=== PATIENT | female | born 1990 | race Hispanic/Latino ===

== ENCOUNTER 2022-02-23 08:55 | Inpatient (IN) | payer OTHER, SELFPAY | END 2022-02-23 10:35 | disposition home or self-care (01) | DRG 833 | LOC: CSHLD 08:55 | PROVIDERS: ADMIT Student in an Organized Health Care Education/Training Program; ATTEND Student in an Organized Health Care Education/Training Program | DX: O36.4XX0 Maternal care for intrauterine death, not applicable or unspecified (principal); O99.213 Obesity complicating pregnancy, third trimester; E66.9 Obesity, unspecified; O24.419 Gestational diabetes mellitus in pregnancy, unspecified control; Z3A.38 38 weeks gestation of pregnancy; Z86.16 Personal history of COVID-19 | CPT/HCPCS: 76815 ==

== ENCOUNTER 2022-02-23 18:00 | Inpatient (IN) | payer OTHER, SELFPAY ==
[2022-02-23] MEDS ORDERED: Ibuprofen 800 MG TAB PO PRN (20:55)
[2022-02-23] MEDS ORDERED: Promethazine HCl 25 MG/ML VIAL IM PRN (20:55)
[2022-02-23] MEDS ORDERED: hydrALAZINE 20 MG/ML VIAL SLOW IVP PRN (20:55)
[2022-02-23] MEDS ORDERED: Misoprostol 200 MCG TAB PR PRN (20:55)
[2022-02-23] MEDS ORDERED: Butorphanol Tartrate 1 MG/ML VIAL SLOW IVP PRN (20:55)
[2022-02-23] MEDS ORDERED: Ondansetron PF 4 MG/2 ML Vial IVP PRN (20:55)
[2022-02-23] MEDS ORDERED: Methylergonovine 0.2 MG/ML VIAL IM PRN (20:55)
[2022-02-23] MEDS ORDERED: Acetaminophen 500 MG TAB PO PRN (20:55)
[2022-02-23] MEDS ORDERED: Lidocaine 1% (PF) 30 ML VIAL SC PRN (20:55)
[2022-02-23 21:25] LABS: Hemoglobin 12.8 g/dL (12.0-15.5); Mean Corpuscular HGB CONC 33.3 g/dL (32.0-36.0); Mean Corpuscular Hemoglobin 30.9 pg (27.0-33.0); Mean Corpuscular Volume 92.8 fl (81.6-98.3); Mean Platelet Volume 12.5 fl (7.4-10.4); Platelet Count 198 10x3/uL (150-450); Red Blood Cell (RBC) Count 4.14 10x6/uL (3.90-5.03); White Blood Cell (WBC) Count 10.3 10x3/uL (3.5-10.5)
[2022-02-23 21:30] LABS: ALT (SGPT) 14 U/L (8-55); AST (SGOT) 20 U/L (5-34); Albumin 3.9 g/dL (3.5-5.0); Alkaline Phosphatase 176 U/L (40-110); Anion Gap 19 mmol/L (10-20); BUN (Urea Nitrogen) 10 mg/dL (7.0-18.7); Bilirubin, Total 0.3 mg/dL (0.2-1.2); Calc. Creatinine Clearance 0 mL/min (70-130); Calcium 9.9 mg/dL (7.8-10.44); Carbon Dioxide 19 mmol/L (22-29); Chloride 104 mmol/L (98-107); Globulin 3.6 g/dL (2.4-3.5); Glucose 91 mg/dL (70-105); Potassium 4.1 mmol/L (3.5-5.1); Protein, Total 7.5 g/dL (6.0-8.3); Sodium 138 mmol/L (136-145)
[2022-02-23 21:43] VITALS: BMI 33.0
[2022-02-23] MEDS: Misoprostol 100 MCG TAB VAG SCH (21:50)
[2022-02-23] MEDS ORDERED: diphenhydrAMINE 50 MG/ML VIAL IVP PRN (21:53)
[2022-02-23] MEDS ORDERED: NS w/ Oxytocin 30 units 500 ML IV SCH ×2 (22:00)
[2022-02-23] MEDS ORDERED: Lactated Ringer's 1,000 ML IV SCH (22:00)
[2022-02-23 22:35] LABS: INR-International Normal Ratio 0.9; PTT 23.3 sec (22.0-33.0); Prothrombin Time 9.3 sec (9.5-12.1)
[2022-02-24] MEDS: Misoprostol 100 MCG TAB VAG SCH ×2 (00:55→04:28)
[2022-02-24] MEDS ORDERED: Misoprostol 100 MCG TAB VAG SCH (04:15)
[2022-02-24] MEDS ORDERED: Fentanyl 2 mcg/Bup 0.1% Cadd 100 ML ONE (17:33)
[2022-02-24] MEDS ORDERED: Acetaminophen 325 MG TAB PO PRN (17:45)
[2022-02-24] MEDS ORDERED: Lactated Ringer's 500 ML IV PRN (17:45)
[2022-02-24] MEDS ORDERED: Naloxone HCl 0.4 mg/ml Vial IVP PRN ×2 (17:45)
[2022-02-24] MEDS ORDERED: diphenhydrAMINE 50 MG/ML VIAL IVP PRN (17:45)
[2022-02-24] MEDS ORDERED: Promethazine HCl 25 MG/ML VIAL IM PRN (17:45)
[2022-02-24] MEDS ORDERED: Ondansetron PF 4 MG/2 ML Vial IVP PRN ×2 (17:45→23:11)
[2022-02-24] MEDS ORDERED: ePHEDrine Sulfate 50 MG/10 ML VIAL SLOW IVP PRN (17:45)
[2022-02-24] MEDS ORDERED: Communication Order-Pharmacy FS SCH (17:45)
[2022-02-24] MEDS ORDERED: Fentanyl 2 mcg/Bupivacaine 0.1% Cassette 100 ML EPIDURAL SCH (17:45)
[2022-02-24] MEDS ORDERED: Moisturizing Cream (Eucerin) 113 GM JAR TOP PRN (17:45)
[2022-02-24] MEDS ORDERED: Misoprostol 200 MCG TAB VAG PRN (23:11)
[2022-02-24] MEDS ORDERED: hydrALAZINE 20 MG/ML VIAL SLOW IVP PRN (23:11)
[2022-02-24] MEDS ORDERED: diphenhydrAMINE 25 MG CAP PO PRN (23:11)
[2022-02-24] MEDS ORDERED: Ibuprofen 800 MG TAB PO SCH (23:11)
[2022-02-24] MEDS ORDERED: Milk Of Magnesia 30 ML UDCUP PO PRN (23:11)
[2022-02-24] MEDS ORDERED: Lanolin Ointment 7 GM TUBE TOP PRN (23:11)
[2022-02-24] MEDS ORDERED: Benzocaine-Menthol 82.5 ML CAN TOP PRN (23:11)
[2022-02-24] MEDS ORDERED: Preparation H Ointment 28 GM TUBE PR PRN (23:11)
[2022-02-24] MEDS ORDERED: NS w/ Oxytocin 30 units 500 ML IV SCH (23:11)
[2022-02-24] MEDS ORDERED: Boostrix 0.5 ML (Tdap) VIAL IM ONE (23:11)
[2022-02-24] MEDS ORDERED: Docusate 100 MG CAP PO SCH (23:11)
[2022-02-24] MEDS ORDERED: Bisacodyl 10 MG SUPP PR PRN (23:11)
[2022-02-24] MEDS ORDERED: diphenhydrAMINE 50 MG/ML VIAL IVP SCH (23:45)
[2022-02-25] MEDS ORDERED: Ferrous Sulfate 325 MG TAB PO SCH (08:00)
[2022-02-25] MEDS ORDERED: Prenatal Vitamin 1 TAB PO SCH (09:00)
[2022-02-25 10:53] LABS: DRVVT Confirm 27.8; HEX PHOS LA Tube 1 36.4 SEC; HEX PHOS LA Tube 2 35.2 SEC; Hexagonal Phospholipid Neut 1.2 SEC (0-8.0)
[2022-02-25 10:56] LABS: Factor VIII Test 317.3 % ACTIVE (56-157)
[2022-02-26 14:26] LABS: Ref Lab Test Ordered MICROARRAY POC
[2022-02-26 17:47] LABS: Cardiolipin IgG Ab 0.7 GPL-U/mL (<10 Negative); EliA APS New Method **** NEW METHOD ****
[2022-02-26 17:48] LABS: Cardiolipin IgM Ab Less than 0.8 MPL-U/mL (<10 Negative); beta-2-Glycoprotein I IgA Ab 5.2 U/mL (<7 Negative); beta-2-Glycoprotein I IgG Ab 0.9 U/mL (<7 Negative); beta-2-Glycoprotein I IgM Abs Less than 2.9 U/mL (<7 Negative)
== END 2022-02-25 13:30 | disposition home or self-care (01) | DRG 807 ==
LOC: CSHLD 19:17
PROVIDERS: ADMIT Obstetrics & Gynecology; ATTEND Obstetrics & Gynecology
PROC: 10E0XZZ Delivery of Products of Conception, External Approach (ICD-10-PCS; principal; 2022-02-24)
PROC: 3E0P7VZ Introduction of Hormone into Female Reproductive, Via Natural or Artificial Opening (ICD-10-PCS; 2022-02-24)
PROC: 3E033VJ Introduction of Other Hormone into Peripheral Vein, Percutaneous Approach (ICD-10-PCS; 2022-02-24)
DX: O36.4XX0 Maternal care for intrauterine death, not applicable or unspecified (principal); Z37.1 Single stillbirth; Z3A.38 38 weeks gestation of pregnancy; E66.9 Obesity, unspecified; O99.214 Obesity complicating childbirth; Z86.16 Personal history of COVID-19; O24.429 Gestational diabetes mellitus in childbirth, unspecified control; O42.02 Full-term premature rupture of membranes, onset of labor within 24 hours of rupture; O66.0 Obstructed labor due to shoulder dystocia
CPT/HCPCS: 36415; 36416; 51702; 80053; 85027; 85240; 85250; 85598; 85610; 85613; 85730; 86146; 86147; 86850; 86900; 86901; 88307; J1200; J7120

== ENCOUNTER 2023-09-02 09:24 | Emergency (ER) | payer MEDICAID, SELFPAY | END 2023-09-02 10:59 | disposition home or self-care (01) | LOC: CSHERS 09:24 | DX: O99.512 Diseases of the respiratory system complicating pregnancy, second trimester (principal); J20.9 Acute bronchitis, unspecified; Z3A.18 18 weeks gestation of pregnancy | CPT/HCPCS: 93005 ==